=== PATIENT | female | born 2000 | race African-American/Black ===

== ENCOUNTER 2022-07-27 12:28 | Emergency (ER) | payer MEDICAID ==
[~2022-07-27] VITALS: Ht 170.2 cm; Wt 89.0 kg
[2022-07-27 12:35] VITALS: BP 134/88
[2022-07-27 16:46] LABS: BASOPHILS % 0.4 % (0.0-2.0); EOSINOPHILS % 0.4 % (0.0-5.0); HEMOGLOBIN. 12.9 g/dL (12.0-16.0); LYMPHOCYTES % 31.1 % (20.0-50.0); MEAN CORPUSCULAR HEMOGLOBIN 27.8 pg (28.0-32.0); MEAN CORPUSCULAR VOLUME 83.9 fL (81.0-99.0); MEAN PLATELET VOLUME 7.9 fl (7.4-10.4); MONOCYTES % 5.8 % (2.0-8.0); NEUTROPHILS % 62.3 % (40.0-76.0); PLATELET 361 x1000/uL (130-400); RED BLOOD CELL COUNT 4.65 mill/uL (4.2-5.4); RED CELL DISTRIBUTION WIDTH 13.7 % (11.6-14.6)
[2022-07-27 16:52] LABS: CHLORIDE 108 mEq/L (98-107)
[2022-07-27] MEDS ORDERED: NAPR-681 MT (17:58)
== END 2022-07-27 18:40 | disposition home or self-care (01) ==
LOC: ER 12:28
DX: N93.8 Other specified abnormal uterine and vaginal bleeding (principal); N83.11 Corpus luteum cyst of right ovary; Z98.890 Other specified postprocedural states
CPT/HCPCS: 36415; 76830; 76856; 80053; 81025; 85025; 86850; 86900; 86901; 99284; Z7610

== ENCOUNTER 2023-05-20 18:05 | Emergency (ER) | payer BC, OTHER ==
[~2023-05-20] VITALS: Ht 175.3 cm; Wt 90.0 kg
[~2023-05-20 18:05] MED LIST: NAPR-681 MT
[2023-05-20 18:14] VITALS: TEMP 98.8; O2SAT 100
[2023-05-20] MEDS ORDERED: ACETAMINOPHEN 325MG TABLET PO STA (19:06)
[2023-05-20] MEDS ORDERED: SODIUM CHLORIDE 0.9% 1,000 ML IV ONE (19:15)
[2023-05-20] MEDS ORDERED: METOCLOPRAMIDE HCL 10MG/2ML VIAL IM ONE (19:15)
[2023-05-20 19:29] LABS: BASOPHILS % 0.5 % (0.0-2.0); DIFFERENTIAL COMMENT 0; HEMATOCRIT. 31.5 % (36.0-48.0); HEMOGLOBIN. 9.8 g/dL (12.0-16.0); LYMPHOCYTES % 9.5 % (20.0-50.0); MEAN CORPUSCULAR HEMOGLOBIN 22.8 pg (28.0-32.0); MEAN CORPUSCULAR HGB CONC 31.2 g/dL (31.0-37.0); MEAN PLATELET VOLUME 8.1 fl (7.4-10.4); MONOCYTES % 11.9 % (2.0-8.0); NEUTROPHILS % 78.1 % (40.0-76.0); PLATELET 431 x1000/uL (130-400); RED BLOOD CELL COUNT 4.31 mill/uL (4.2-5.4); RED CELL DISTRIBUTION WIDTH 16.9 % (11.6-14.6)
[2023-05-20 19:45] LABS: ALANINE AMINOTRANSFERASE 16 IU/L (10-49); ALBUMIN 4.3 g/dL (3.2-4.8); ASPARTATE AMINOTRANSFERASE 17 IU/L (<34); BILIRUBIN TOTAL 0.4 mg/dL (0.1-1.0); CALCIUM 9.3 mg/dL (8.7-10.4); CARBON DIOXIDE 27 mEq/L (21-32); CHLORIDE 105 mEq/L (98-107); CREATININE 0.8 mg/dL (0.6-1.0); GLUCOSE 94 mg/dL (70-105); POTASSIUM 4.1 mEq/L (3.5-5.1); PROTEIN TOTAL 8.1 g/dL (6.0-8.3); SODIUM 139 mEq/L (136-145); UREA NITROGEN BLOOD 11 mg/dL (9-23)
[2023-05-20 20:13] LABS: TROPONIN I HIGH SENSITIVITY < 4 ng/L (3.0-34)
[2023-05-20 20:32] LABS: HCG SCREEN NEGATIVE
[2023-05-20 21:34] LABS: CLARITY URINE CLEAR (CLEAR); COLOR URINE YELLOW (YELLOW); GLUCOSE URINE NEGATIVE (NEGATIVE); KETONES URINE NEGATIVE (NEGATIVE); LEUKOCYTE ESTERASE URINE NEGATIVE (NEGATIVE); NITRITE URINE NEGATIVE (NEGATIVE); OCCULT BLOOD URINE 1+ (NEGATIVE); PH URINE 8.5 (4.5-8.0); PROTEIN URINE NEGATIVE (NEGATIVE); SPECIFIC GRAVITY URINE 1.024 (1.005-1.030)
[2023-05-20 22:19] LABS: BACTERIA URINE TRACE; RBC URINE 0-2 /hpf (0-2); SQUAMOUS EPITHELIAL CELL URINE FEW /lpf (RARE/1+); WBC URINE 0-2 /hpf (0-2)
[2023-05-21] MEDS ORDERED: ACETAMINOPHEN 325MG TABLET PO NR (02:30)
[2023-05-21] MEDS ORDERED: METOCLOPRAMIDE HCL 10MG/2ML VIAL IM NR (02:30)
[2023-05-21 03:37] VITALS: BP 106/67; PULSE 73; RESP 18
[2023-05-21] MEDS ORDERED: IOHEXOL-350 100 ML BOTTLE ONE (06:19)
== END 2023-05-21 03:39 | disposition home or self-care (01) ==
LOC: ER 18:05
DX: R07.9 Chest pain, unspecified (principal); Z98.890 Other specified postprocedural states
CPT/HCPCS: 80053; 81003; 81025; 84703; 85025; 84484; 36415; 71045; 93005; 99285; 71275; 96360; 96372; J7030; Q9967; J2765; Z7610